=== PATIENT | male | born 1950 | race Caucasian/White ===

== ENCOUNTER 2022-05-02 00:49 | Day surgery (SDC) | payer MEDICARE, SELFPAY ==
[2022-04-18 13:06] VITALS: BMI 25.9
--- NOTE | 2022-05-01 09:57 | WPDANESEPPF ---
Anes - Initial Pre Proc Eval Procedure: Operation Date: 05/02/22 11:00 Proposed Procedures p Screening Colonoscopy - Marko Burgess MD Date/Time: 05/01/22 09:57 Surgeon: Marko Burgess MD Pre Op Diagnosis: hx colon polyps Patient Data Age: 72 Gender: M Height: 1.78 m Weight: 82 kg Allergies Allergy/AdvReac Type Severity Reaction Status Date / Time No Known Allergies Allergy Verified 05/02/22 09:43 Home Medications Medication Instructions Recorded Confirmed Type amlodipine 10 mg tablet 10 mg PO DAILY 04/18/22 04/18/22 History atorvastatin 40 mg tablet 40 mg PO DAILY 04/18/22 04/18/22 History citalopram 40 mg tablet 40 mg PO DAILY 04/18/22 04/18/22 History quinapril 40 mg tablet 40 mg PO DAILY 04/18/22 04/18/22 History Patient hx anesthesia problems: none Family hx anesthesia problems: none Results Review: All pre-operative results and documents have been reviewed as part of the pre-operative evaluation. [facility] Past Medical History Medical History (Updated 05/01/22 @ 09:58 by Frankie Jones DO) Depression Hyperlipidemia Hypertension Surgical History Surgical History (Updated 05/01/22 @ 09:58 by Frankie Jones DO) History of cholecystectomy Social History Social History Smoking status: Never smoker Alcohol intake: former Alcohol use details: no alcohol for over 5 years Substance use: current Substance use type: marijuana Other substance usage details: twice weekly Living arrangements: alone Spiritual care concerns: No Anes - Eval Final PreProcedure Day of Procedure 05/01/22 09:57 Patient weight: overweight Heart: regular rate and rhythm Lungs: clear to auscultation Airway: Mallampati scale class II Neurological: alert and oriented Last oral intake: >/= 8 hours ASA classification: II Emergent: no Anesthetic plan: proceed Anesthesia type and monitoring: general GIVS and standard monitoring Results Review: All pre-operative results and documents have been reviewed as part of the pre-operative evaluation. Informed Consent: The patient's anesthetic plan and its attendant risks and benefits were discussed with the patient/family/POA. Questions were solicited and answers provided to the satisfaction of the patient/family/POA.
[2022-05-02 09:44] VITALS: BP 158/66; PULSE 66; RESP 20; TEMP 36.5; O2SAT 100
[2022-05-02] MEDS: LACTATED RINGERS 1,000 ML 150 ML IV CONT (09:58)
--- NOTE | 2022-05-02 10:19 | PM.HPGS ---
History of Present Illness History of Present Illness Consent: Risks, benefits, and alternatives have been discussed and questions answered. Patient agrees to proceed with procedure. Chief complaint: hx colon polyps Narrative: Mainor Andujar is a 72 year old male here for colon cancer screening. He has a history of polyps. Review of Systems Review of Systems: All systems reviewed & are unremarkable except as noted in HPI and below PMFSH Past Medical History Medical History Depression Hyperlipidemia Hypertension Surgical History Surgical History History of cholecystectomy Social History Social History Smoking status: Never smoker Alcohol intake: former Alcohol use details: no alcohol for over 5 years Substance use: current Substance use type: marijuana Other substance usage details: twice weekly Living arrangements: alone Spiritual care concerns: No Meds Home Medications and Allergies Home Medications Medication Instructions Recorded Confirmed Type amlodipine 10 mg tablet 10 mg PO DAILY 04/18/22 04/18/22 History atorvastatin 40 mg tablet 40 mg PO DAILY 04/18/22 04/18/22 History citalopram 40 mg tablet 40 mg PO DAILY 04/18/22 04/18/22 History quinapril 40 mg tablet 40 mg PO DAILY 04/18/22 04/18/22 History Allergies Allergy/AdvReac Type Severity Reaction Status Date / Time No Known Allergies Allergy Verified 05/02/22 09:43 Vital Signs Vital Signs - 24 hr 05/02/22 09:44 Temperature 36.5 C Pulse Rate 66 Respiratory Rate 20 Blood Pressure 158/66 H Pulse Oximetry 100 Oxygen Delivery Room Air Exam Resp: Auscultation: clear to auscultation bilaterally Cardio: Rate: regular rate Rhythm: regular rhythm GI: GI Palp: Yes Soft to palpation and No Tenderness to palpation present (GI) Assessment and Plan Assessment and plan (1) Colon cancer screening: Code(s): Z12.11 - Encounter for screening for malignant neoplasm of colon Status: Acute Assessment and Plan: Colonoscopy with possible biopsy or polypectomy or cautery or injection of substances.
[2022-05-02 11:19] VITALS: BP 88/57; PULSE 61; RESP 22; O2SAT 98
[2022-05-02 11:29] VITALS: BP 107/64; PULSE 58; RESP 17; O2SAT 97
[2022-05-02 11:39] VITALS: BP 123/74; PULSE 55; RESP 24; O2SAT 99
== END 2022-05-02 11:55 | disposition home or self-care (01) ==
PROVIDERS: PCP Internal Medicine; Visit Provider Internal Medicine Gastroenterology
PROC: 0DJD8ZZ Inspection of Lower Intestinal Tract, Via Natural or Artificial Opening Endoscopic (ICD-10-PCS; CPT 45378; principal; 2022-05-02 11:00)
DX: Z12.11 Encounter for screening for malignant neoplasm of colon (principal); D12.3 Benign neoplasm of transverse colon; K64.8 Other hemorrhoids; I10 Essential (primary) hypertension; F32.A Depression, unspecified; E78.5 Hyperlipidemia, unspecified; Z90.49 Acquired absence of other specified parts of digestive tract; F12.90 Cannabis use, unspecified, uncomplicated
CPT/HCPCS: 45385; 88305; J2704; J7120